=== PATIENT | female | born 1990 | race Caucasian/White ===

== ENCOUNTER 2016-07-29 04:49 | Outpatient (CLI) | payer MEDICAID, OTHER ==
[2016-07-29] MEDS ORDERED: ACETAMINOPHEN 500 MG TAB PO STA (05:08)
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
== END 2016-07-29 06:41 | disposition home or self-care (01) ==
LOC: OBT 04:49 → L-D 04:51 → OBT 06:41
PROVIDERS: ATTEND Obstetrics & Gynecology
DX: O26.892 Other specified pregnancy related conditions, second trimester (principal); R51 Headache; V89.2XXA Person injured in unspecified motor-vehicle accident, traffic, initial encounter; Z3A.28 28 weeks gestation of pregnancy
CPT/HCPCS: G0463

== ENCOUNTER 2016-09-24 15:51 | Outpatient (CLI) | payer MEDICAID ==
[~2016-09-24] VITALS: Ht 165.1 cm; Wt 96.1 kg
[2016-09-24 16:34] VITALS: Ht 165.1 cm; Wt 96.1 kg
[2016-09-24 16:35] VITALS: BP 127/67; PULSE 102; RESP 18
[2016-09-24 17:58] LABS: ADD SCAN DIFF NO
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
[2016-09-24 18:01] LABS: BASOPHIL # 0.1 10^3/ul (0.0-0.1); BASOPHILS % 0.4 % (0.0-2.0); EOSINOPHILS # 0.1 10^3/ul (0.0-0.5); EOSINOPHILS % 0.7 % (0.0-7.0); HEMATOCRIT 33.9 % (37.0-47.0); HEMOGLOBIN 11.4 g/dl (12.0-16.0); LYMPHOCYTES # 3.1 10^3/ul (0.8-2.9); LYMPHOCYTES % 18.5 % (15.0-51.0); MEAN CORPUSCULAR HEMOGLOBIN 29.1 pg (29.0-33.0); MEAN CORPUSCULAR HGB CONC 33.6 g/dl (32.0-37.0); MEAN CORPUSCULAR VOLUME 86.5 fl (82.0-101.0); MEAN PLATELET VOLUME 10.9 fl (7.4-10.4); MONOCYTE # 1.3 10^3/ul (0.3-0.9); MONOCYTES % 7.7 % (0.0-11.0); NEUTROPHIL # 11.2 10^3/ul (1.6-7.5); PLATELET COUNT 240 10^3/UL (140-415); RED BLOOD COUNT 3.92 10^6/ul (4.20-5.40); RED CELL DISTRIBUTION WIDTH 13.8 % (11.5-14.5); WHITE BLOOD COUNT 16.5 10^3/ul (4.8-10.8)
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
[2016-09-24 18:07] LABS: PLATELET COUNT 232 10^3/UL (140-415)
[2016-09-24 18:10] LABS: ADD UMIC YES; UR ASCORBIC ACID NEGATIVE (NEGATIVE); UR BILIRUBIN (Dip) NEGATIVE (NEGATIVE); UR BLOOD (Dip) NEGATIVE (NEGATIVE); UR CLARITY SLIGHTLY CLOUDY (CLEAR); UR COLOR YELLOW (YELLOW); UR GLUCOSE (Dip) NEGATIVE (NEGATIVE); UR KETONES (Dip) NEGATIVE (NEGATIVE); UR LEUKOCYTE ESTERASE (Dip) NEGATIVE Leu/ul (NEGATIVE); UR MUCUS FEW /HPF (NONE SEEN); UR NITRITE (Dip) NEGATIVE (NEGATIVE); UR RBC 2 /HPF (0-5); UR SPECIFIC GRAVITY (Dip) 1.026 (1.003-1.030); UR SQUAMOUS EPITHELIAL CELL FEW /HPF (FEW); UR TOTAL PROTEIN (Dip) 1+ mg/dl (NEGATIVE); UR UROBILINOGEN (Dip) NEGATIVE (NEGATIVE)
[2016-09-24 18:23] LABS: INR 0.93; PROTIME 12.5 Sec (12.2-14.2)
[2016-09-24 18:25] LABS: PARTIAL THROMBOPLASTIN TIME 24.4 Sec (25.0-35.0)
[2016-09-24 18:26] LABS: THROMBIN TIME 14.5 SEC (13.8-19.1)
[2016-09-24 18:30] LABS: D-DIMER 1096.99 ng/ml (<460)
[2016-09-24 18:32] LABS: FIBRIN SPLIT PRODUCT <10 ug/ml (<10)
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
== END 2016-09-24 20:34 | disposition home or self-care (01) ==
LOC: L-D 15:51 → OBT 15:51
PROVIDERS: ATTEND Obstetrics & Gynecology
DX: Z34.93 Encounter for supervision of normal pregnancy, unspecified, third trimester (principal)
CPT/HCPCS: 36415; 76815; 76818; 81001; 85025; 85049; 85362; 85378; 85384; 85460; 85610; 85670; 85730; 86850; 86900; 86901; Z7500; G0463